=== PATIENT | male | born 1945 | race Caucasian/White ===

== ENCOUNTER 2019-05-31 05:27 | Observation (INO) | payer MEDICARE, OTHER ==
[~2019-05-31 05:27] MED LIST: ATORVASTATIN CA10 MG PO; LOSARTAN POTAS100 MG PO; MOVE FREE JOIN1 EACH PO; MULTI-VITAMIN1 EACH PO; calcium PO
[2019-05-31] MEDS ORDERED: CEFAZOLIN SOD 1 GM/NS 50ML 100 ML IV ONE (06:12)
[2019-05-31] MEDS ORDERED: DEXAMETHASONE SOD PHOS 10 MG/1 ML VIAL ONE (06:28)
[2019-05-31] MEDS ORDERED: CELECOXIB 200 MG CAP ONE (06:28)
[2019-05-31] MEDS ORDERED: GABAPENTIN 300 MG CAP ONE (06:29)
[2019-05-31] MEDS ORDERED: VANCOMYCIN HCL 1,000 MG ONE (06:32)
[2019-05-31] MEDS ORDERED: BACITRACIN 50,000 UNIT VIAL ONE (06:33)
[2019-05-31] MEDS ORDERED: TRANEXAMIC ACID 1,000 MG/10 ML ML ONE (06:33)
[2019-05-31] MEDS ORDERED: SODIUM CHLORIDE 0.9% 500ML 500 ML ONE (07:08)
[2019-05-31] MEDS ORDERED: BUPIVACAINE 7.5MG/ML /DEXTROSE 82.5MG/ML 2 ML AMP INJ ONE (07:24)
[2019-05-31] MEDS ORDERED: ROPIVACAINE 246.25 MG, EPINEPHRINE HCL 1:1000 1ML 0.5 MG, CLONIDINE HCL 0.08 MG, KETORO... INJ ONE ×5 (07:30)
[2019-05-31] MEDS ORDERED: DIPHENHYDRAMINE HCL INJ 50 MG/ML VIAL IM/IV PRN (10:15)
[2019-05-31] MEDS ORDERED: PROMETHAZINE HCL (IM) 25 MG/ML VIAL INJ PRN (10:15)
[2019-05-31] MEDS ORDERED: ZOLPIDEM TARTRATE 5 MG TAB PO PRN (10:15)
[2019-05-31] MEDS ORDERED: KETOROLAC TROMETHAMINE 30 MG/ML VIAL IV PRN (10:15)
[2019-05-31] MEDS ORDERED: ONDANSETRON HCL INJ 2MG/ML 2ML 2 MG/ML VIAL IV PRN (10:15)
[2019-05-31] MEDS ORDERED: HYDROCODONE/APAP 7.5MG-325MG 1 EA TAB PO PRN (10:15)
[2019-05-31] MEDS ORDERED: HYDROCODONE/APAP 5MG-325MG TAB PO PRN (10:15)
[2019-05-31] MEDS ORDERED: ACETAMINOPHEN 650 MG SUPP PR PRN (10:15)
[2019-05-31] MEDS ORDERED: DOCUSATE SODIUM 100 MG CAP PO PRN (10:15)
--- NOTE | 2019-05-31 11:48 | Diagnostic Imaging Report ---
EXAMINATION: PELVIS AP 1-2 VIEWS INDICATION: Postoperative COMPARISON: None FINDINGS: Portable AP image of the pelvis demonstrates immediate postoperative findings of left total hip replacement. Alignment appears anatomic. No unexpected fracture. Small amount of postoperative subcutaneous soft tissue emphysema. Surgical skin en in place. Moderate degenerative changes of the cowlitz right hip joint. IMPRESSION: Anatomic alignment status post left total hip replacement. Signed by: Adina Ash MD on 05/31/2019 11:45 AM
--- NOTE | 2019-05-31 12:22 | NUR ---
RECEIVED PATIENT FROM RECOVERY. PATIENT A/O X3, EVEN RESPIRATIONS ON RA. LUNG SOUNDS CLEAR TO AUSCULTATION. BOWEL SOUNDS PRESENT. RIGHT HAND 20 GAUGE IV WITH NS @ 100CC/HR. LEFT HIP DRESSING CLEAN, DRY, AND INTACT. DENIES PAIN AT THIS TIME. JEWELS HOSE TO RIGHT LEG. FOOT PUMPS BILATERALLY. BED LOW, WHEELS LOCKED, SIDE RAILS X2. CALL LIGHT IN REACH WILL CONTINUE TO MONITOR PATIENT.
[2019-05-31] MEDS: SODIUM CHLORIDE 0.9% 1000ML 1,000 ML IV SCH ×2 (13:10→20:08)
[2019-05-31] MEDS: ACETAMINOPHEN 1000 MG/100 ML IV SCH ×2 (13:24→18:37)
[2019-05-31 13:45] VITALS: BP 115/58
[2019-05-31 13:46] VITALS: BP 115/58
[2019-05-31] MEDS ORDERED: PROPOFOL IV EMULSION 10 MG/ML 20 ML VIAL ONE (14:01)
[2019-05-31] MEDS ORDERED: LIDOCAINE HCL 2% LOCAL INJ 5 ML SDV VIAL INJ ONE (14:01)
[2019-05-31] MEDS ORDERED: BUPIVACAINE HCL 0.5% INJ 30 ML VIAL INJ ONE (14:14)
[2019-05-31] MEDS ORDERED: FENTANYL CITRATE/PF 100MCG/2 ML INJ ONE (14:22)
[2019-05-31] MEDS ORDERED: MIDAZOLAM HCL 2 MG/2 ML VIAL ONE (14:22)
--- NOTE | 2019-05-31 14:28 | Operative Report ---
DATE OF PROCEDURE: 05/31/2019 SURGEON: Harsh Moreira MD CADD OPERATOR: Bulmaro Valenzuela, certified PA. PREOPERATIVE DIAGNOSIS: Osteoarthritis, left hip. POSTOPERATIVE DIAGNOSIS: Osteoarthritis, left hip. PROCEDURE: Left total hip arthroplasty. INDICATIONS: The patient is a 73-year-old gentleman, who has end-stage arthritis of his left hip. He has failed conservative management and would like to proceed with a left total hip replacement. The risks and benefits have been discussed. All of his questions have been answered. He states he understands and wishes to proceed. PROCEDURE IN DETAIL: The patient was brought to the operating room and placed under spinal anesthetic. He received prophylactic antibiotics and tranexamic acid in the holding area. He was positioned in the right lateral decubitus position. His left hip was prepped and draped in a sterile manner. 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 A posterior approach with a limited incision was made to the left hip. Hemostasis was obtained with electrocautery. A self-retaining Charnley retractor was placed. Care was taken to avoid injury to the sciatic nerve. The posterior capsule was carefully exposed and released. Further hemostasis was obtained with electrocautery. The hip was dislocated and an oscillating saw was used to resect the femoral head. Complete loss of articular cartilage was noted. Notable soft tissue releases were necessary to gain appropriate visibility of the socket. A large paralabral cyst was decompressed in the superior aspect. Labral remnants were removed. Throughout the case, a shower tip pulsatile lavage and a spray mixture of diluted vancomycin and polymyxin spray were periodically used to irrigate the hip. Once the acetabulum was clearly visualized, a 46 mm reamer was used to establish the true floor of the socket. The socket was then sequentially reamed up to 57 mm. This accomplished bleeding hemispherical cancellous bone. A Bakari Biomet 58 mm outer diameter OsseoTi socket was then impacted into place. Good bone quality was encountered. Fixation was augmented with a single 25 mm screw placed into the ilium. Excellent purchase of the screw was noted. A highly cross-linked polyethylene liner with no posterior elevation and a 36 mm inner diameter was then impacted into place. Care was taken to make sure that there was no evidence of soft tissue interposition. The retractors were removed and attention was directed towards the proximal femur. The socket was packed with a moistly-soaked lap sponge. A box cutting osteotome and taper pin reamer were used to establish entry to the femoral canal. The Taperloc broaches were impacted. A size 15 stem had good canal fill and stability. The calcar reamer was used. Trial reductions were performed. I felt that a +3 mm neck with a 36 mm head provided appropriate druze of limb length, soft tissue balancing and stability to a full arc of motion. The trial implants were removed. The hip was further irrigated with a shower tip pulsatile lavage. The stem was seated. The ceramic head and +3 mm neck were seated onto the stem. Care was taken to make sure that the stem was clean and dry. A final reduction was performed. A 100 mL premixed pericapsular VANNESSA injection was placed into the surrounding soft tissue. The deep fascia was closed after sprinkling 500 mg of vancomycin powder into the wound. The fascia was closed with interrupted #2 Ethibond. The skin was closed with subcuticular Vicryl and en. A sterile Aquacel bandage was applied. The patient was returned to the supine position. He was transported to the recovery room in stable condition. Estimated blood loss was 75 mL. At the end of the procedure, all needle and sponge counts were correct. Harsh Moreira MD DR/ZENA /[id number]
[2019-05-31 16:22] VITALS: BP 119/59
[2019-05-31] MEDS: CELECOXIB 200 MG CAP PO SCH (18:03)
[2019-05-31] MEDS: ASPIRIN 325 MG TAB PO SCH (18:03)
[2019-05-31] MEDS: CEFAZOLIN SOD 1 GM/NS 50ML 50 ML IV SCH (18:36)
--- NOTE | 2019-05-31 18:37 | NUR ---
PATIENT HAS VOIDED SINCE SURGERY.
[2019-05-31 20:00] VITALS: BP 103/57
--- NOTE | 2019-05-31 20:00 | NUR ---
pt in bed, alert and oriented, left hip with moderate blood drainage, reinforced with gauze and foam tape, foot pumps on, no c/o pain at this time, call light in reach, vs wnl at this time
[2019-05-31] MEDS ORDERED: ATORVASTATIN 10 MG TAB PO SCH (21:00)
[2019-06-01 00:44] VITALS: BP 111/55
[2019-06-01] MEDS: CEFAZOLIN SOD 1 GM/NS 50ML 50 ML IV SCH ×2 (01:32→09:45)
[2019-06-01 04:00] VITALS: BP 121/61
[2019-06-01] MEDS: ACETAMINOPHEN 1000 MG/100 ML IV SCH ×2 (06:00)
[2019-06-01] MEDS: SODIUM CHLORIDE 0.9% 1000ML 1,000 ML IV SCH (06:08)
--- NOTE | 2019-06-01 07:00 | NUR ---
RECEIVED PATIENT AWAKE RESTING IN BED NO S/S OF DISTRESS. BED LOW, WHEELS LOCKED, SIDE RAILS X2. CALL LIGHT IN REACH WILL CONTINUE TO MONITOR PATIENT.
[2019-06-01 07:04] LABS: HEMATOCRIT 35.1 % (38.2-49.6); HEMOGLOBIN 11.7 g/dL (14.0-18.0)
[2019-06-01 08:01] VITALS: BP 141/82
[2019-06-01] MEDS ORDERED: ONDANSETRON HCL 4 MG ORAL DISINTEGRATING TAB PO PRN (08:15)
[2019-06-01 08:31] VITALS: BP 141/82
[2019-06-01] MEDS: ASPIRIN 325 MG TAB PO SCH (08:31)
[2019-06-01] MEDS: CELECOXIB 200 MG CAP PO SCH (08:31)
[2019-06-01] MEDS ORDERED: MULTIVITAMINS/MINERALS TAB PO SCH (09:00)
[2019-06-01] MEDS ORDERED: LOSARTAN POTASSIUM 100 MG TAB PO SCH (09:00)
[2019-06-01] MEDS ORDERED: ACETAMINOPHEN 1000 MG/100 ML IV PRN (10:15)
[2019-06-01 12:02] VITALS: BP 134/66
--- NOTE | 2019-06-01 12:02 | NUR ---
Spoke wit [facility] at [facility] - they are set up to see the patient tomorrow. Equipment has been delivered by [facility] [employer]. LNEKA signed, marco signed, copy of hh info to patient.
--- NOTE | 2019-06-01 13:40 | NUR ---
REMOVED PATIENTS IV. CATHETER TIP INTACT AND PRESSURE DRESSING APPLIED.
--- NOTE | 2019-06-01 13:45 | NUR ---
PATIENT DISCHARGED FROM FACILITY. PATIENT GATHERED ALL PERSONAL BELONGINGS, DISCHARGE INSTRUCTIONS, AND FOLLOW UP INFORMATION. PATIENT LEFT UNIT IN WHEELCHAIR AND WENT HOME VIA PRIVATE AUTO. NO SIGNS OF DISTRESS WHEN LEAVING FACILITY.
== END 2019-06-01 13:44 | disposition home health service (06) ==
LOC: OR 05:27 → PACU V 10:10 → MED/SURG 12:28
PROVIDERS: ADMIT Specialist; ATTEND Specialist
DX: M16.12 Unilateral primary osteoarthritis, left hip (principal); I10 Essential (primary) hypertension; E78.00 Pure hypercholesterolemia, unspecified
CPT/HCPCS: 27130; 36415; 72170; 85014; 85018; 86850; 86900; 86920; 97110; 97116 ×2; 97139; 97161; C1713 ×3; C1734; G0378 ×2; J0131 ×2; J0171; J0690 ×2; J1100; J1885; J2001; J2250; J2704; J2795; J3010; J3370; J7030; J7040

== ENCOUNTER → 2020-08-25 | Outpatient (RCR) | payer MEDICARE, OTHER | LOC: PT 07-27 13:47 | PROVIDERS: ATTEND Specialist | DX: M99.09 Segmental and somatic dysfunction of abdomen and other regions (principal); M54.5 Low back pain; M62.81 Muscle weakness (generalized) ==

== ENCOUNTER 2020-09-22 09:57 | Outpatient (RCR) | payer MEDICARE, OTHER | END 2020-09-25 | LOC: PT 09:57 | PROVIDERS: ATTEND Specialist ==